=== PATIENT | male | born 1955 | race Caucasian/White ===

== ENCOUNTER 2019-11-29 08:31 | Outpatient (CLI) | payer OTHER, SELFPAY ==
[2019-12-01 12:00] LABS: SARS-CoV-2 RNA PCR Negative
== END 2019-11-29 08:32 | disposition home or self-care (01) ==
LOC: CHSLAB 08:35
PROVIDERS: PCP Nurse Practitioner Family; Visit Provider Family Medicine
DX: Z20.828 Contact with and (suspected) exposure to other viral communicable diseases (principal)
CPT/HCPCS: 87635; C9803; U0003

== ENCOUNTER 2020-02-13 17:44 | Outpatient (CLI) | payer OTHER, SELFPAY ==
[2020-02-16 18:34] LABS: SARS-CoV-2 RNA PCR Positive
== END 2020-02-13 17:45 | disposition home or self-care (01) ==
LOC: CHSLAB 17:52
PROVIDERS: PCP Nurse Practitioner Family; Visit Provider Family Medicine
DX: U07.1 COVID-19 (principal)
CPT/HCPCS: 87635; C9803; U0003

== ENCOUNTER 2020-03-01 07:45 | Outpatient (CLI) | payer OTHER, SELFPAY ==
[2020-03-02 18:44] LABS: SARS-CoV-2 RNA PCR Negative
== END 2020-03-01 07:46 | disposition home or self-care (01) ==
LOC: CHSLAB 07:47
PROVIDERS: PCP Nurse Practitioner Family; Visit Provider Family Medicine
DX: U07.1 COVID-19 (principal)
CPT/HCPCS: 87635; C9803; U0003

== ENCOUNTER 2022-07-05 09:54 | Outpatient (CLI) | payer OTHER, SELFPAY ==
--- NOTE | 2022-07-05 | EST_ITS ---
Patient Info Name: Jose Carlos He Age: 66 years : 1955 Gender: Male Ht: 67 in Wt: 175 lbs BSA: 1.95 m2 HR: 67 bpm BP: 147 / 74 mmHg Heart Rhythm: Sinus Rhythm Exam Date: 07/05/2022 11:18 AM Exam Location: [facility] Stress Patient Status: Outpatient Admit Date: 07/05/2022 Staff Ordering Physician: Leah, Artis Gonzalez MD Attending Provider: Leah, Artis Gonzalez MD Exercise Technologist: Ifeoma Wilson CT Exercise Physician: Brenden Dee MD Exam Type: CA stress test treadmill w NM Study Info Indications R94.31 - Abnormal electrocardiogram ECG EKG A nuclear stress test was performed. Summary 1. Exercise capacity fair to good at 6-10 METS. 2. Hypertensive blood pressure response with exercise. 3. No abnormal ST/T wave changes diagnostic of ischemia with exercise. 4. Please correlate with nuclear medicine images, reported separately. Protocol: Art Stress ECG Details Stage: REST Duration (min): 1 min : 13 sec Speed (mph): 0.0 Grade (%): 0 HR (bpm): 75 SBP (mmHg): 147 DBP (mmHg): 74 METS: --- Stage: REST Duration (min): 8 min : 12 sec Speed (mph): 0.0 Grade (%): 0 HR (bpm): 81 SBP (mmHg): 147 DBP (mmHg): 74 METS: --- Stage: STAGE 1 Duration (min): 1 min : 0 sec Speed (mph): 1.7 Grade (%): 10 HR (bpm): 103 SBP (mmHg): 147 DBP (mmHg): 74 METS: --- Stage: STAGE 1 Duration (min): 2 min : 0 sec Speed (mph): 1.7 Grade (%): 10 HR (bpm): 107 SBP (mmHg): 147 DBP (mmHg): 74 METS: --- Stage: STAGE 1 Duration (min): 3 min : 0 sec Speed (mph): 1.7 Grade (%): 10 HR (bpm): 112 SBP (mmHg): 204 DBP (mmHg): 94 METS: --- Stage: STAGE 2 Duration (min): 1 min : 0 sec Speed (mph): 2.5 Grade (%): 12 HR (bpm): 121 SBP (mmHg): 204 DBP (mmHg): 94 METS: --- Stage: STAGE 2 Duration (min): 2 min : 0 sec Speed (mph): 2.5 Grade (%): 12 HR (bpm): 126 SBP (mmHg): 215 DBP (mmHg): 95 METS: --- Stage: STAGE 2 Duration (min): 3 min : 0 sec Speed (mph): 2.5 Grade (%): 12 HR (bpm): 131 SBP (mmHg): 215 DBP (mmHg): 95 METS: --- Stage: STAGE 3 Duration (min): 1 min : 0 sec Speed (mph): 3.4 Grade (%): 14 HR (bpm): 132 SBP (mmHg): 215 DBP (mmHg): 95 METS: --- Stage: STAGE 3 Duration (min): 1 min : 19 sec Speed (mph): 3.4 Grade (%): 14 HR (bpm): 133 SBP (mmHg): 215 DBP (mmHg): 95 METS: --- Stage: RECOVERY Duration (min): 0 min : 40 sec Speed (mph): 0.0 Grade (%): 0 HR (bpm): 121 SBP (mmHg): 215 DBP (mmHg): 95 METS: --- Stage: RECOVERY Duration (min): 1 min : 40 sec Speed (mph): 0.0 Grade (%): 0 HR (bpm): 105 SBP (mmHg): 215 DBP (mmHg): 82 METS: --- Stage: RECOVERY Duration (min): 2 min : 40 sec Speed (mph): 0.0 Grade (%): 0 HR (bpm): 94 SBP (mmHg): 215 DBP (mmHg): 82 METS: --- Stage: RECOVERY
--- NOTE | ~2022-07-05 | NM_ITS ---
EXAMINATION: NM stress w perf spect multi DATE: 07/05/2022 12:33 INDICATION: Precordial chest pain. TECHNIQUE: Rest images were obtained following intravenous administration of 10.8 mCi Tc99m tetrofosm in (Myoview). The patient performed an exercise activity. At peak exercise, 33.5 mCi Tc99m tetrofosmi n (Myoview) was administered intravenously, and stress images were obtained. Data was reconstructed i nto short axis and horizontal and vertical long axis SPECT images. Gated SPECT images were also obtai viv. COMPARISON: None. FINDINGS: There is no definite reversible or fixed perfusion abnormality to suggest ischemia or infar ction. There is no segmental wall motion abnormality. Left ventricular ejection fraction measures 6 6%. IMPRESSION: 1. No definite ischemia or infarct. 2. Normal left ventricular ejection fraction measuring 66%. Reviewed, dictated and finalized at location A.
== END 2022-07-05 09:55 | disposition home or self-care (01) ==
PROVIDERS: PCP Family Medicine; Visit Provider Family Medicine
DX: R07.2 Precordial pain (principal); R94.31 Abnormal electrocardiogram [ECG] [EKG]
CPT/HCPCS: 78452; 93017; A9502

== ENCOUNTER → 2022-11-03 14:46 | Outpatient (CLI) | payer OTHER, SELFPAY ==
--- NOTE | ~2022-11-03 | CT_ITS ---
EXAMINATION:CT diagnostic chest wo con DATE: 11/03/2022 15:05 INDICATION: Mediastinal mass. TECHNIQUE: Computed tomography (CT) of the chest was performed without intravenous contrast. Automate d exposure control and iterative reconstruction technique were employed. The dose-length product (DLP ) was 310.87 mGy-cm. COMPARISON: None. FINDINGS: A calcified right lung nodule is consistent with old granulomatous disease. No pleural effu marko. The heart size is normal. There are coronary artery calcifications. No pericardial effusion. Th ere is normal thymus in the anterior mediastinum. There is mild bilateral gynecomastia. There is kamari re cervical spondylosis and mild thoracic spondylosis. IMPRESSION: 1. No abnormal mediastinal mass. Reviewed, dictated and finalized at location E.
== END ==
PROVIDERS: PCP Family Medicine; Visit Provider Family Medicine
DX: J98.59 Other diseases of mediastinum, not elsewhere classified (principal)
CPT/HCPCS: 71250

== ENCOUNTER → 2022-12-29 15:47 | Outpatient (CLI) | payer OTHER, SELFPAY ==
--- NOTE | ~2022-12-29 | XR_ITS ---
EXAMINATION: XR chest 2V 12/29/2022 16:01 INDICATION: Chronic cough PROCEDURE: 2 view chest COMPARISON: No prior studies for comparison. FINDINGS: The lungs are clear. The cardiomediastinal silhouette is within normal limits. There are no pleural effusions. There is no pneumothorax suspected. IMPRESSION: 1: NO ACUTE CARDIOPULMONARY DISEASE. Reviewed, dictated and finalized at location B.
== END ==
PROVIDERS: PCP Family Medicine; Visit Provider Family Medicine
DX: R05.3 Chronic cough (principal)
CPT/HCPCS: 71046